=== PATIENT | male | born 1975 | race Caucasian/White ===

== ENCOUNTER 2019-02-10 10:34 | Inpatient (IN) | payer OTHER, SELFPAY ==
[2019-02-10] VITALS (34 sets, daily range): BP systolic 129–163; BP diastolic 81–105; PULSE 59–101; RESP 12–27; TEMP 36.4–36.8; O2SAT 95–100; BMI 40.8; BMI 39.5
--- NOTE | 2019-02-10 10:47 | EKG12_ITS ---
Test Reason : AM EKG Blood Pressure : / mmHG Vent. Rate : 074 BPM Atrial Rate : 074 BPM P-R Int : 184 ms QRS Dur : 106 ms QT Int : 348 ms P-R-T Axes : 040 079 -03 degrees QTc Int : 386 ms Normal sinus rhythm Nonspecific T wave abnormality Abnormal ECG When compared with ECG of 10-FEB-2019 13:16, MANUAL COMPARISON REQUIRED, DATA IS UNCONFIRMED Confirmed by KATTY STOCK ([id number]), visual effects editor MARIAM QUIROZ ([id number]) on 02/11/2019 2:16:07 PM Referred By: Casey Gillette Confirmed By:KATTY STOCK
--- NOTE | 2019-02-10 10:47 | RAD_ITS ---
STUDY: X-RAY CHEST REASON FOR EXAM: Male, 43 years old. TECHNIQUE: 1 view COMPARISON: None. FINDINGS: There is poor inspiration. The heart is not enlarged. The lung herrera and costophrenic angles are clear. The visualized bony structures are intact. The trachea is in the midline. RAD/Chest 1 View (Portable) IMPRESSION: Negative chest . Electronically Signed: Alondra Ewing, at 11:48 EDT Tel , Service support ,
[2019-02-10 10:57] LABS: Absolute Lymphocyte Count 2.86 X10^3/ul (0.83-4.51); Absolute Neutrophil Count 3.1 X10^3/uL (2.0-7.7); Basophil# 0.02 X10^3/uL; Basophil% 0.3 % (0-1); Eosinophil# 0.39 X10^3/uL; Eosinophils% 5.8 % (0-5); Hematocrit 46.2 % (40-54); Hemoglobin 16.3 g/dl (13.0-16.5); Lymphocyte # 2.86 X10^3/ul (4.0); Lymphocyte % 42.4 % (19-41); Mean Corp Hgb Conc 35.3 g/gl (32-36); Mean Corpuscular Hgb 30.6 pg (27.0-32.0); Mean Corpuscular Volume 86.8 fL (80-94); Mean Platelet Vol. 9.6 fl (6.2-12.0); Monocyte% 5.9 % (0-10); Neutrophil # 3.05 X10^3/uL (2.7-7.7); Neutrophil % 45.2 % (47-70); POSITIVE COUNT NO; POSITIVE DIFFERENTIAL NO; POSITIVE MORPHOLOGY NO; Platelet Count 182 K/mm3 (150-450); RBC Distribution Width CV 13.3 % (11.6-14.6); RBC Distribution Width SD 42.7 fl (35.1-43.9); Red Blood Count 5.32 M/mm3 (4.6-6.2); White Blood Count 6.8 K/mm3 (4.4-11.0)
[2019-02-10 11:11] LABS: Anion Gap 15 (5-15); BUN 21 mg/dL (7-18); BUN/Creat Ratio 16.2 RATIO (10-20); Chloride 108 mmol/L (98-107); EST Glomerular Filtration Rate 63 mL/min (>60); Est Glom Filt Rate - Afr Amer 77 mL/min (>60); Estimated Creatinine Clearance 71.76 ml/min; Glucose 153 mg/dL (74-106); Potassium 4.1 mmol/L (3.5-5.1); Sodium Level 143 mmol/L (136-145)
[2019-02-10] MEDS: Nitroglycerin SL (ED/IMG/CATH) 0.4 MG TABLET SUBLINGUAL ×2 (11:23→11:30)
--- NOTE | 2019-02-10 11:26 | EKG12_ITS ---
Test Reason : CP Blood Pressure : / mmHG Vent. Rate : 060 BPM Atrial Rate : 060 BPM P-R Int : 148 ms QRS Dur : 100 ms QT Int : 390 ms P-R-T Axes : 009 054 030 degrees QTc Int : 390 ms Normal sinus rhythm ST elevation, consider early repolarization or early inferior CT Borderline ECG No previous ECGs available Confirmed by MANDY IRELAND, MELIZA ([id number]), editor farm journal FABY VANEGAS ([id number]) on 02/24/2019 2:34:47 PM Referred By: Casey Gillette Confirmed By:MELIZA GALVAN MD
[2019-02-10] MEDS: TICAGRELOR 90 MG TABLET 180 MG PO (11:40)
--- NOTE | 2019-02-10 11:43 | ED.VISSUMM ---
- ER Visit Summary Date of Service: 02/10/19 Chief Complaint: Chest pain History of Present Illness: The patient is a 43 M treat hypertension and kidney stones. The last week starting Saturday a week ago patient had 3 different episodes of midsternal chest pain. At times it radiates to his back. Today while walking down the hallway he had onset the pain and became diaphoretic with it. He denies any dyspnea. No nausea. It does not radiate to his arm or jaw. He is never had any cardiac disease history. No history of DVT or PE or risk factors. He is never had a cardiac work-up and is no extensive family history of cardiac disease. Today when he became diaphoretic squad was called. He had a low heart rate described treating with atropine at the time his pressure was still 120 systolic. Physical Examination: Middle-aged male external chest pain. Initial blood pressure 143/99. Pulse ox 100%. HEENT exam unremarkable. Neck nontender. Lungs clear to auscultation bilaterally. Heart regular rate and rhythm rate about 60 no murmur. He does have some reproducible chest wall pain but I think this is coincidental. Abdomen is soft and nontender. Normal bowel sounds no peritoneal signs. Patient is moving all 4 extremities. He is equal symmetrical radial pulses. Calves are nontender without edema or cords. Neurologically he is awake and alert with no focal motor deficits. Test Results: Shows sinus rhythm he did have subtle ST upsloping in 1 to V3 through V6 but did not meet criteria: Acute ND. Repeat EKG was done and has changed. He again is in sinus rhythm but he has ST elevation again but worsening in leads I and II and V3 through V6 with ST depression now in the one deep to the second EKG meets criteria to be called in inferolateral ND. STEMI team was activated. Patient is already received Brilinta and aspirin. CBC was normal. Chemistries were normal. Chest x-ray showed a normal cardiac silhouette and mediastinum. Emergency Department Course and Treatment: I spoke to the ST elevation engineer automated equipment and he is on his way to the ER to evaluate the patient taken to the Water Quality Assistant. I discussed this with the patient and his family is being prepared to be taken to the Water Quality Assistant. Treatment Plan: [] Disposition: Transfer to the cardiac catheterization lab for emergent cardiac catheterization Impression: Acute chest pain secondary to acute inferolateral myocardial infarction Critical care time 30 minutes This note was generated with [employer] dictation software. It may contain incorrect words, spelling, and punctuation that were not noted in review of the chart prior to signing ED Disposition - Plan for ED Patient: Referrals: Adonay Boss MD [Primary Care Provider] -
--- NOTE | 2019-02-10 12:06 | CM.ED ---
Social Work Responding to Stemi Alert. Met with patient daughter in [facility] and offered support. Maribell BOWEN, DELL
[2019-02-10] MEDS: 0.9% Normal Saline 1,000 ML 100 ML IV (13:15)
--- NOTE | 2019-02-10 13:15 | NURSING ---
in ICU6 per bed from chemical processing laborer, chemical processing laborer RNs in attendance
--- NOTE | 2019-02-10 13:19 | EKG12_ITS ---
Test Reason : POST PCI Blood Pressure : / mmHG Vent. Rate : 068 BPM Atrial Rate : 068 BPM P-R Int : 188 ms QRS Dur : 094 ms QT Int : 380 ms P-R-T Axes : 039 068 002 degrees QTc Int : 404 ms Normal sinus rhythm with sinus arrhythmia Normal ECG No previous ECGs available Confirmed by MANDY IRELAND, MELIZA ([id number]), editor managing newspaper MARIAM QUIROZ ([id number]) on 02/24/2019 2:18:37 PM Referred By: Casey Gillette Confirmed By:MELIZA GALVAN MD
--- NOTE | 2019-02-10 13:28 | CON.PCM_ITS ---
Problem List (1) STEMI (ST elevation myocardial infarction) Status: Acute Reason for Consult Date of Consultation: 02/10/19 History of Present Illness: The patient is a 43 year old M [with past medical history of hypertension, GERD coming to [facility] because of chest pain. Chest pain has been going on and off since last Saturday. This morning it became more intense and he called the ambulance. Initial EKG showed some ST elevation in the inferior and lateral leads, however an EKG done in the emergency room did not reveal ST elevation TX. Subsequently patient had more chest pain and at around 11:37 AM he had another EKG which revealed inferior and lateral ST elevation TX and a STEMI alert was called. Patient was then brought emergently to the cardiac Inspector [employer]ities and was found to have 100% occlusion of the circumflex which was treated with thrombectomy and drug-eluting stent placement. He was also found to have a 95% ulcerated lesion in the distal RCA which was treated with drug-eluting stent placement. Patient is doing very well at the end of the procedure. Review of systems: All systems reviewed all others negative except that in the HPI] Past Medical History Allergies/Adverse Reactions: Allergies codeine Adverse Reaction (Verified 02/10/19 11:21) Itching Home Medications: Ambulatory Orders Medication Instructions Recorded Losartan Potassium [Cozaar] 100 mg PO DAILY 02/10/19 Omeprazole Magnesium [Prilosec Otc] 20 mg PO DAILY 02/10/19 - *Family History Paternal History Items: Heart Disease - Past medical history: Patient has past medical history of hypertension and GERD. Smoking Status: Never smoker Alcohol: Rare Objective: Vital Signs Temp Pulse Resp BP Pulse Ox 98.1 F 66 21 H 163/81 H 97 02/10/19 10:35 02/10/19 11:48 02/10/19 11:48 02/10/19 11:48 02/10/19 11:48 Oxygen Flow Rate (L/min) 2 Oxygen Delivery Method Nasal Cannula Weight: 276 lb 7.355 oz Body Mass Index (BMI) 40.8 General: Awake, Alert, Oriented x 3 HEENT: PERRL, EOMI, Sclera Non Icteric Neck: Supple, Good ROM, No Lymph Node Enlargement Lungs: Clear to auscultation Cardiovascular: Regular Rhythm, Normal S1, Normal S2, No Murmurs, No Rubs, No Gallops Vascular: No Carotid Bruits, Normal Femoral Pulses, Normal Radial Pulses, Normal Dorsalis Pedal Pulse, Normal Posterior Tibial Pulses Abdomen: Bowel Sounds Present, Soft, Non Tender, No HSM, No Organomegaly Extremities: No Cyanosis, No Clubbing, No edema Psych/Mental Status: Appropriate 02/10/19 10:40: WBC 6.8, RBC 5.32, Hgb 16.3, Hct 46.2, MCV 86.8, MCH 30.6, MCHC 35.3, RDW 13.3, RDW Differential 42.7, Plt Count 182, MPV 9.6, Immature Gran % (Auto) 0.400, Neut % (Auto) 45.2 L, Lymph % (Auto) 42.4 H, [place] % (Auto) 5.9, Eos % (Auto) 5.8 H, Baso % (Auto) 0.3, Absolute Neuts (auto) 3.1, Total Counted Not Reportable 02/10/19 10:40: Sodium 143, Potassium 4.1, Chloride 108 H, Carbon Dioxide 20.0 L , Anion Gap 15, BUN 21 H, Creatinine 1.30, Est GFR (MDRD) Af Amer 77, Est GFR (MDRD) Non-Af 63, BUN/Creatinine Ratio 16.2, Glucose 153 H, Calcium 9.0, Troponin I 0.304 H Rhythm: EKG: ECHO: Stress Test: Cardiac Cath: PCI: CT Surgery: Holter monitor: EPS: PPM: CXR: Chest CT Scan: Assessment/Plan 1. ST elevation TX: As mentioned in the HPI, subsequent EKG in the emergency room revealed STEMI and patient was treated with thrombectomy and drug-eluting stent placement to the circumflex and drug-eluting stent placement to the RCA. We will keep the patient on dual antiplatelet therapy, beta-cristiano, statin. He does have history of hypertension, however, his blood pressure was on the low side. He was on losartan 100 mg p.o. daily. We will monitor his blood pressure while he is in the hospital and restart losartan at a lower dose probably if required. Patient will be admitted to the ICU for further management of his ST elevation TX
--- NOTE | 2019-02-10 13:30 | EKG12_ITS ---
Test Reason : REPEAT Blood Pressure : / mmHG Vent. Rate : 078 BPM Atrial Rate : 078 BPM P-R Int : 168 ms QRS Dur : 094 ms QT Int : 364 ms P-R-T Axes : 023 052 022 degrees QTc Int : 414 ms Normal sinus rhythm ST elevation consider inferolateral injury or acute infarct ACUTE UT / STEMI Abnormal ECG Confirmed by MANDY IRELAND, MELIZA ([id number]), primer expeditor and drier MARIAM QUIROZ ([id number]) on 02/24/2019 2:19:04 PM Referred By: Casey Gillette Confirmed By:MELIZA GALVAN MD
--- NOTE | 2019-02-10 14:24 | HP.PCM_ITS ---
Problem List (1) STEMI (ST elevation myocardial infarction) Status: Acute Qualifiers: Involved coronary artery: other coronary artery Qualified Code(s): I21.29 - ST elevation (STEMI) myocardial infarction involving other sites History of Present Illness Date of Admission: 02/10/19 Chief Complaint: chest pain The patient is a 43 year old M who was in his normal state of health but then started having midsternal chest pain and diaphoretic. Presented to the emergency room initial EKG was normal but subsequent EKG about an hour showed ST elevation in V2 and V4 plus depressions in V1 and V2. Patient was taken to the Infantry Senior [facility] and was found to have a percent occlusion of the circumflex which required stent as well as received a stent to his RCA. Currently patient is feeling better at this time. Patient said that he had some chest pain when he was doing some housework with his couple weeks ago but until just very wiped out afterwards but subsequently felt better and had no other issues. [] Past Medical History Medical History: Medical History (Last Updated 02/10/19 @ 14:25 by Jacky Rice DO) CAD (coronary artery disease) I25.10 GERD (gastroesophageal reflux disease) K21.9 HTN (hypertension) I10 Allergies codeine Adverse Reaction (Verified 02/10/19 11:21) Itching Home Medications: Ambulatory Orders Medication Instructions Recorded Losartan Potassium [Cozaar] 100 mg PO DAILY 02/10/19 Omeprazole Magnesium [Prilosec Otc] 20 mg PO DAILY 02/10/19 Psychiatric History: No pertinent psych hx Lives: Spouse/ Significant Other Smoking Status: Never smoker Tobacco Use: Non-smoker Alcohol: Rare Drugs: None - *Family History Paternal History Items: Heart Disease - Past medical history: Patient has past medical history of hypertension and GERD. Review of Systems Constitutional: Denies: Anorexia, Chills, Fever, Night Sweats Eyes: Denies: Blurred vision, Double vision HEENT: Denies: Head Aches, Sinus Congestion, Sinus Drainage Cardiovascular: Reports: Chest Pain. Denies: Edema Respiratory: Denies: Cough, Shortness of breath at rest, Sputum production Gastrointestinal: Denies: Abdominal Pain, Nausea, Vomiting Genitourinary: Denies: Dysuria Musculoskeletal: Denies: Joint Pain, Joint Tenderness Skin: Denies: Rash, Wounds Neurological: Denies: Numbness, Tingling, Focal weakness Psychiatric: Denies: Anxiety, Depression Hematologic/ Lymphatic: Denies: Easy Bruising, Easy Bleeding, Hx of blood clot Comment: A 10 point review of systems were negative except as mentioned in the history of present illness and the other review of systems. VTE Information - Inpt Only VTE Present on Admission: No VTE Mechan Device Prophylaxis: SCD's VTE Pharm Prophylaxis ordered?: No Patient Problems: Active and Suspected Problems STEMI (ST elevation myocardial infarction) (Acute) - Physical Exam General: Alert, No apparent distress HEENT: Atraumatic, Normocephalic Oral: Moist Mucosa, No Gingival or Mucosal Lesions/ Ulcerations Neck: No Nodes, Thyroid Normal Size and Texture Lungs: Clear to auscultation, Normal air movement, No rhonchi, No wheeze, No rales Cardiovascular: Regular rate, Regular Rhythm, Normal S1, Normal S2, No murmurs Abdomen: Bowel Sounds Present, Soft, Non Tender, Non-Distended, No Hepato- splenomegaly Extremities: No edema, No Calf Tenderness Skin: No rashes, No breakdown Musculoskeletal: No Tenderness to Palpation of Joints or Extremities, No Muscle Wasting Neurological: Deep Tendon Reflexes 2+/4 and Symmetrical, - - No clonus Psych/Mental Status: Normal Affect, Appropriate Vital Signs Temp Pulse Resp BP Pulse Ox 36.7 C 66 21 H 163/81 H 97 02/10/19 10:35 02/10/19 11:48 02/10/19 11:48 02/10/19 11:48 02/10/19 11:48 Oxygen Flow Rate (L/min) 2 Oxygen Delivery Method Nasal Cannula Weight: 125.4 kg Body Mass Index (BMI) 40.8 Laboratory Tests Past 24 Hrs 02/10/19 02/10/19 10:40 10:40 WBC 6.8 RBC 5.32 Hgb 16.3 Hct 46.2 MCV 86.8 MCH 30.6 MCHC 35.3 RDW 13.3 RDW Differential 42.7 Plt Count 182 MPV 9.6 Immature Gran % (Auto) 0.400 Neut % (Auto) 45.2 L Lymph % (Auto) 42.4 H [place] % (Auto) 5.9 Eos % (Auto) 5.8 H Baso % (Auto) 0.3 Absolute Neuts (auto) 3.1 Absolute Lymphs (auto) 2.86 Total Counted Not Reportable Sodium 143 Potassium 4.1 Chloride 108 H Carbon Dioxide 20.0 L Anion Gap 15 BUN 21 H Creatinine 1.30 Estim Creat Clear Calc 71.76 Est GFR (MDRD) Af Amer 77 Est GFR (MDRD) Non-Af 63 BUN/Creatinine Ratio 16.2 Glucose 153 H Calcium 9.0 Troponin I 0.304 H Assessment/Plan All Active Problems STEMI (ST elevation myocardial infarction) (Acute) 1. ST elevation myocardial infarction * Status post stents to the circumflex and the RCA * Currently on an Integrilin drip plus metoprolol 2.5 mg twice daily, ticagrelor, aspirin and statin * Cardiology continuing to follow * Echocardiogram ordered 2. Hypertension * Resume losartan and monitor 3. VTE prophylaxis: SCDs for now. Code Visit Inpatient E&M: 32174 Init Hosp L3
[2019-02-10] MEDS: Metoprolol Tartrate 25 MG Tablet 12.5 MG PO (15:53)
--- NOTE | 2019-02-10 18:22 | CL.I_ITS ---
Patient Name: ALLIE HINOJOSA Study Date: 02/10/2019 Performing: Pan Gillette MD Ht: 69 inches 175 cm : 1975 Wt: 275.9 lbs 125 kg Age: 43 Gender: male BSA: 2.36 PROCEDURE(S) PERFORMED EL29-ZEH/COR/LV LR41-WTI, LARUEN AND/OR PTCA, ARTERY OR GRAFT, SINGLE VESSEL [id number] W OR WO PTCA, SINGLE CORONARY ARTERY CLINICAL PROFILE AND CO-MORBIDITIES Indications: ACS <= 24 hrs Heart Failure: None Stress/Imaging Stress/Image Study Performed: No CAD Presentations: STEMI. Symptom onset Date/Time: 02/10/19 STEMI. Symptom onset Date/Time: 09:3 0:00 Time Estimated CONCLUSIONS Successful thrombectomy and LAUREN to LCx and LAUREN to distal RCA RECOMMENDATIONS Referred for immediate PCI Risk factor modification ASA Indefinitley Brilinta for at least 12 months Routine post interventional care DESCRIPTION OF PROCEDURE The patient arrived to the procedure lab. The risks and benefits of the procedure as well as a full d escription of our services here and lack of surgical backup were fully explained to the patient and/o r their significant other prior to the catheterization. The Timeout was completed, verifying the gege ect patient and procedure. The patient's procedural site was prepped and draped in the usual fashion. Local anesthetic was given subcutaneously to right radial region with Lidocaine 2%. Using a modified Seldinger technique, arterial access was obtained via the right radial artery, a 6Fr sheath was inse rted.. Left Coronary Artery selective angiography was performed in multiple views using a 5 Fr. JL3. 5 catheter. Left Ventriculography was performed in MCDANIEL projection using a 5 Fr. JR 4. LV to AO pullba ck pressures were then recorded. Right Coronary Artery selective angiography was then performed in mu ltiple views using a 5 Fr. JR 4 catheterThe images were reviewed and options discussed. A decision was then made to proceed with an Intervention, IVUS or other adjunct procedure. XB 3 Guide catheter was inserted and engaged into the LCA. BMW Guide wire was advanced to the Cir cumflex. Girard AP inserted Pass # 1 Girard AP Removed 3.5 x 28 Elunir Drug Eluting stent was inserte d. Drug Eluting stent was advanced across the lesion in the circumflex, mid. Angiogram performed pre stent deployment. Angiogram performed post stent deployment. JR 4.0 Guide catheter was inserted and e ngaged into the RCA. BMW Guide wire was advanced to the RCA. 3.0 x 20 Emerge Balloon catheter was adv anced across lesion in the right coronary, mid. PTCA balloon inflated at 10 atms for 22 secs. Angiogr am performed post balloon dilatation. 4.0 x 24 Elunir Drug Eluting stent was advanced across the lesi on in the right coronary, mid. Angiogram performed post stent deployment. The arterial sheath was p ulled and a TR Band was applied for hemostasis 16cc air CORONARY ANGIOGRAPHY DOMINANCE: Right Dominant LEFT HEART ASSESSMENT Left Ventricular Ejection Fraction: by LV Gram 55 % Elevated Left Ventricular End Diastolic Pressure Normal LV wall motion LEFT MAIN: Mild luminal irregularities LEFT ANTERIOR DESCENDING ARTERY: MID LAD: 65 % Stenosis CIRCUMFLEX ARTERY: MID CIRC: is occluded RIGHT CORONARY ARTERY: DISTAL RCA: 95 % Stenosis VALVE FINDINGS: No Aortic Valve Stenosis No Mitral Insufficency INTERVENTION INFORMATION LESION SITE: Circumflex (Mid) Lesion Complexity: High/C, chronic total occlusion: No, lesion at bifurcation: No, thrombus present: Yes, lesion length: 25 mm, culprit lesion: Yes, Previously treated lesion: No Pre Stenosis: 100 % Pre intervention VERNON flow: 0 PROCEDURE: Thrombectomy, Drug Eluting Stent Post Stenosis: 0 % Post intervention VERNON flow: 3 Lesion Devices: Cordis 6 Fr XB3.0 100cm Guide Catheter Terumo .014 Runthrough Extra Floppy 180cm straight Christiansen .014 BMW [place] Straight 190cm Cardinal Elunir LAUREN RX 3.5x28 LESION SITE: RCA (Mid) Lesion Complexity: High/C, chronic total occlusion: No, lesion at bifurcation: No, thrombus present: Yes, lesion length: 20 mm, culprit lesion: Yes Pre Stenosis: 95 % Pre intervention VERNON flow: 2 PROCEDURE: Drug Eluting Stent with pre dilatation. Post Stenosis: 0 % Post intervention VERNON flow: 3 Lesion Devices: Christiansen .014 BMW [place] Straight 190cm Cordis 6 Fr JR4 100cm Guide Catheter Terence Sci EMERGE MR 3.00x20 BALLOON Cardinal Elunir LAUREN RX 4.0x24 COMPLICATIONS No Complications PROCEDURE MEDICATIONS Versed 1 mg IV Fentanyl 50 mcg IV Fentanyl 50 mcg IV Oxygen: 2 L/min via nasal cannula Heparin given IA 02/10/2019 12:09:22 Heparin 7000 unit(s) IV 02/10/2019 12:10:04 Nitro 100 mcg IC 02/10/2019 12:27:34 Verapamil 2.5mg, Ntg 100mcgs, 3000 units of Heparin given IA 02/10/2019 12:09:22 IV Bolus: .9 NaCl 500 ml total 02/10/2019 12:27:47 SUMMARY OF HEMODYNAMIC DATA Time AIR REST ECG 12:00:03 LV 162/-10, 22 12:11:33 LV 162/-10, 22 12:11:39 LVp 149/-8, 23 12:11:55 AOp 132/87 (105) 12:12:00 AO 128/81 (101) SA 12:12:05 LV 113/0, 21 12:34:02 LV 113/3, 24 12:34:34 LVp 88/11, 28 12:34:50 AOp 98/61 (75) 12:34:56 Signed By Pan Gillette MD On 02/10/2019 6:22:01 PM Pan Gillette MD
[2019-02-10] MEDS: Metoprolol Tartrate 25 MG Tablet PO (21:39)
[2019-02-10] MEDS: TICAGRELOR 90 MG TABLET PO (21:40)
[2019-02-10] MEDS: Atorvastatin Calcium 40 MG Tablet PO (21:40)
[2019-02-10] MEDS: amLODIPine 2.5 MG Tablet PO (23:46)
[2019-02-11] VITALS (31 sets, daily range): BP systolic 87–169; BP diastolic 63–124; PULSE 57–92; RESP 15–25; TEMP 36.6–37.1; O2SAT 96–100; BMI 40.9
[2019-02-11] MEDS: hydrALAZINE 20 MG/ML Vial 10 MG IV (01:17)
[2019-02-11] MEDS: Acetaminophen 325 MG Tablet 650 MG PO ×2 (01:44→09:14)
[2019-02-11 04:39] LABS: Anion Gap 12 (5-15); BUN 14 mg/dL (7-18); BUN/Creat Ratio 13.7 RATIO (10-20); Calcium,Total 8.7 mg/dL (8.5-10.1); Chloride 108 mmol/L (98-107); Cholesterol 201 mg/dL (200); Creatinine, Serum 1.02 mg/dL (0.70-1.30); EST Glomerular Filtration Rate 84 mL/min (>60); Est Glom Filt Rate - Afr Amer 101 mL/min (>60); Estimated Creatinine Clearance 91.46 ml/min; Glucose 126 mg/dL (74-106); High Density Lipoprotein 36 mg/dL; Potassium 3.8 mmol/L (3.5-5.1); Sodium Level 140 mmol/L (136-145); Triglycerides 140 mg/dL; Very Low Density Lipoprotein 28 mg/dL (5-40)
[2019-02-11 08:32] LABS: Absolute Lymphocyte Count 1.44 X10^3/ul (0.83-4.51); Absolute Neutrophil Count 8.8 X10^3/uL (2.0-7.7); Basophil# 0.01 X10^3/uL; Basophil% 0.1 % (0-1); Eosinophil# 0.08 X10^3/uL; Eosinophils% 0.7 % (0-5); Hematocrit 46.2 % (40-54); Hemoglobin 16.1 g/dl (13.0-16.5); Lymphocyte # 1.44 X10^3/ul (4.0); Lymphocyte % 12.7 % (19-41); Mean Corp Hgb Conc 34.8 g/gl (32-36); Mean Corpuscular Hgb 30.2 pg (27.0-32.0); Mean Corpuscular Volume 86.7 fL (80-94); Mean Platelet Vol. 9.6 fl (6.2-12.0); Monocyte# 0.98 X10^3/uL; Monocyte% 8.6 % (0-10); Neutrophil # 8.78 X10^3/uL (2.7-7.7); Neutrophil % 77.5 % (47-70); POSITIVE COUNT NO; POSITIVE DIFFERENTIAL NO; POSITIVE MORPHOLOGY NO; Platelet Count 192 K/mm3 (150-450); RBC Distribution Width CV 13.4 % (11.6-14.6); RBC Distribution Width SD 42.5 fl (35.1-43.9); Red Blood Count 5.33 M/mm3 (4.6-6.2); White Blood Count 11.3 K/mm3 (4.4-11.0)
[2019-02-11] MEDS: Aspirin E.C. 81 MG Tablet PO (09:13)
[2019-02-11] MEDS: Losartan Potassium 100 MG Tablet PO (09:13)
[2019-02-11] MEDS: TICAGRELOR 90 MG TABLET PO ×2 (09:14→21:45)
[2019-02-11] MEDS: Metoprolol Tartrate 25 MG Tablet 12.5 MG PO (09:14)
[2019-02-11] MEDS: Pantoprazole Sodium 20 MG Tablet PO (09:14)
--- NOTE | 2019-02-11 09:51 | CASEMGMT ---
SW went to room to see patient. Introduced self and role at [facility]. Patient said he has insurance and they just gave someone a copy of his card. Becky SHARPE MSW
--- NOTE | 2019-02-11 10:00 | ECHOCS_ITS ---
Reason For Study: STEMI Procedure This was a 2D Doppler, Color Flow transthoracic echocardiogram. The study was technically difficult. Due to body habitus. Contrast injection was performed. Exam performed portable in ICU/CCU. Left Ventricle Normal LV size. Concentric left ventricular hypertrophy. The estimated ejection fraction is 50-55 %. No evidence for diastolic dysfunction. possible mild hypokinesis of the inferolateral wall. Right Ventricle The right ventricle is not well visualized. Atria The left atrium is mildly enlarged. Normal right atrium. No doppler evidence for ASD. Mitral Valve There is no mitral valve stenosis. No mitral valve insufficiency. Tricuspid Valve There is no tricuspid stenosis. No tricuspid valve insufficiency. Unable to estimate RV systolic pressure due to insufficient tricuspid regurgitant envelope. Aortic Valve The aortic valve is not well visualized. There is no aortic stenosis. No aortic valve insufficiency. Pulmonic Valve There is no pulmonic valvular stenosis. No eccentric pulmonic valve insufficiency. Great Vessels Normal aortic root. Pericardium/Pleural No pericardial effusion. Medication Diluted definity 5.0ml given slow IV push to enhance endocardial definition. MMode/2D Measurements & Calculations LVIDd: 4.6 cm IVSd: 1.1 cm Ao root diam: 3.7 cm LVIDs: 3.3 cm LVPWd: 1.0 cm RVDd: 3.1 cm FS: 28.3 % LAV(MOD-bp): 66.5 ml LA A4 area: 21.5 cm2 LA dimension(2D): 4.0 cm LAV(MOD-bp) Indexed: 28.5 ml/m2 LAV(MOD-sp2): 66.3 ml LAV(MOD-sp4): 66.9 ml RA A4 area: 18.2 cm2 Time Measurements MV dec time: 0.19 sec Doppler Measurements & Calculations MV E max brian: 52.2 cm/sec Lat Peak E' Brian: 8.6 cm/sec Med Peak E' Brian: 11.5 cm/sec MV A max brian: 67.1 cm/sec E/E' lat: 6.0 E/E' med: 4.5 MV E/A: 0.78 Ao V2 max: 120.6 cm/sec LV V1 max: 87.4 cm/sec PA V2 max: 95.0 cm/sec Ao max P.8 mmHg LV V1 max P.1 mmHg TR max brian: 168.1 cm/sec TR max P.3 mmHg Interpretation Summary The study was technically difficult. Diluted definity 5.0ml given slow IV push to enhance endocardial definition. The estimated ejection fraction is 50-55 %. No evidence for diastolic dysfunction. The study was technically difficult. Ordering Physician: Casey Gillette Referring Physician: Adonay Boss Performed By: Ruthann Chester RDCS, RVT
--- NOTE | 2019-02-11 10:46 | CASEMGMT ---
RN CM Assessment Introduced role of RN CM to patient.? Patient is alert, oriented and able?to participate in RN CM Assessment. ?Care providers, pharmacy, and demographics verified. Presentation: Starting Last week- 3 episodes of CP Admit Dx: STEMI Re-Admit: No Barriers/Issues: None PCP: Adonay Boss- States does not care for PCP and now that has new Insurance, plans on switching PCP, denies needing list and states that he knows how to access PCP from Insurance site to choose from. Specialists: None Preferred Pharmacy: [facility] Insurance: [employer] Rx Benefit:?Yes ?LNOK: Lyndsay Chung LW/HPOA: Yes both, aware not on file at [facility]. HPOA- Lyndsay Chung Living Arrangements:?Lives with and daughter in a 2 story home, Bedroom on lower level. 2 steps to enter. ADL?s: Independent with ambulation and ADL's Transportation: Patient drives, to transport on DC. DME: CPAP- [facility]. Denies any other DME. HHC: None SNF: None Goal: Home and does not anticipated will have any needs. DC PLAN: Home with no anticipated needs identified at this time. Denies Questions or Concerns and aware CM remains available for any emerging needs. CM to follow for DC with Anticoagulation that may have Coupon Card. ROBERT Cornell
--- NOTE | 2019-02-11 10:57 | CRPHASE1_ITS ---
Patient Communication PHII Cardiac Rehab Discussed with Patient:: Yes Guide to Cardiac Rehab Given to Patient:: Yes Cardiac Rehab Facility Choice List Given to Patient:: Yes - chose [facility] Program Other:: Communication Given to CR, With permission faxed order and referral information Assembly Press Operator:: Casey Gillette PCP:: Adonay Boss Phase II Cardiac Rehab:: Yes - talked to Katy at [place]. Risk Factors/Lifestyle Smoking Status: Never smoker Hx Hypertension: Yes Hx Diabetes Mellitus Type 2: No Height: 1.75 m Weight:: 125.4 kg BMI: 40.9 ETOH: No Caffeine: Yes Substance Abuse: No Risk Factor for Sedentary Lifestyle: Moderate Risk Family History: Heart Disease Laboratory Values: Cardiac Rehab Phase I Labs Triglycerides 140 mg/dL (-199) 02/11/19 04:00 Cholesterol 201 mg/dL (200) H 02/11/19 04:00 137 mg/dL (0-130) H 02/11/19 04:00 36 mg/dL (40-) L 02/11/19 04:00 Phase I Education Given On:: [place], Nutrition Knowledge of Condition:: Yes Learning Preferences: Verbal Hospital Course Pain Description: Sharp, Tightness Pain Intensity: 4 Cardiac Cath Date:: 02/11/19 Medical/Surgical History GA:: Yes Diabetes:: No Hypertension:: Yes Discharge/Home/Social Eval Discharge Disposition: Home Marital Status: - Cardiac Rehabilitation Info Cardiac Rehabilitation Program Information: Cardiac Rehabilitation is important for patients like you who are recovering from a heart problem. Cardiac rehabilitation programs are recognized as integral to the continued care of the patient with coronary heart disease. The cardiac rehabilitation program is designed to optimize a patient's physical, psychological, and social functioning. Health resident care aid work in cardiac rehabilitation programs and assist you with getting the treatments you need to get stronger and healthier - like exercise, healthy eating habits, and me dications. Cardiac rehabilitation has been show to help people with heart problems live longer and have better life enjoyment than people who do not go to cardiac rehabilitation. Please contact the Cardiac Rehabilitation Program at [facility] at in two weeks if you have not heard from them.
--- NOTE | 2019-02-11 11:08 | CRPH1.INSTRU ---
General Education CAD and cardiac anatomy and function:: Patient communicates acknowledgment, Family communicates acknowledgment Explanation of diagnoses and procedures:: Patient communicates acknowledgment, Family communicates acknowledgment Sign/Symptoms of OR:: Patient communicates acknowledgment, Family communicates acknowledgment Antiplatelet therapy: Not instructed Proper use of NTG-SL: Not instructed Emergency procedures and activation of EMS: Patient communicates acknowledgment Compliance of all prescribed medications: Not instructed Smoking Patient Nicotine/Smoking Risk Factors Are:: Never smoked Dyslipidemia Recommendations Include:: Lipid profile not available Overweight/Obesity Patient Overweight/Obesity Risk Factors Are:: Overweight = 26-29 Overweight/Obesity:: Patient communicates acknowledgment Hypertension Recommendations Include:: Maintain BP <130/85 Hypertension:: Patient communicates acknowledgment Heart Disease Patient Heart Disease Risk Factors Are:: Family history of heart disease < 65 years old Heart Disease Response Code:: Patient communicates acknowledgment Diabetes Patient Diabetes Risk Factors Are:: No documented hx of diabetes Metabolic Syndrome Metabolic Syndrome Response Code:: Patient communicates acknowledgment Sedentary Sedentary Response Code:: Patient communicates acknowledgment Stress Patient Stress Risk Factors Are:: Patient denies stress as a risk factor
--- NOTE | 2019-02-11 15:08 | PN.CARD_ITS ---
Subjectve: Patient is doing well from a cardiac standpoint. No chest pain at this time. Objective: Vital Signs Temp Pulse Resp BP Pulse Ox 97.8 F 83 16 154/89 H 100 02/11/19 12:00 02/11/19 14:00 02/11/19 14:00 02/11/19 14:00 02/11/19 14:00 Oxygen Flow Rate (L/min) 2 Oxygen Delivery Method Room Air Weight: 276 lb 7.355 oz Body Mass Index (BMI) 39.5 Intake and Output for Last 24 Hours 02/09/19 02/10/19 02/11/19 23:59 23:59 23:59 Intake Total 1265 / 1265 540 / 540 Output Total 1999 1250 / 1250 Balance -735 / -735 -710 / -710 General: Awake, Oriented x 3 HEENT: Atraumatic Oral: Moist Mucosa Neck: Supple Lungs: Clear to auscultation Cardiovascular: Normal S1, Normal S2 Abdomen: Soft Extremities: No edema Psych/Mental Status: Appropriate 02/11/19 04:00: Sodium 140, Potassium 3.8, Chloride 108 H, Carbon Dioxide 20.0 L , Anion Gap 12, BUN 14, Creatinine 1.02, Est GFR (MDRD) Af Amer 101, Est GFR (MDRD) Non-Af 84, BUN/Creatinine Ratio 13.7, Glucose 126 H, Calcium 8.7, Triglycerides 140, Cholesterol 201 H, LDL Cholesterol 137 H, VLDL Cholesterol 28, HDL Cholesterol 36 L 02/11/19 04:00: WBC 11.3 H, RBC 5.33, Hgb 16.1, Hct 46.2, MCV 86.7, MCH 30.2, MCHC 34.8, RDW 13.4, RDW Differential 42.5, Plt Count 192, MPV 9.6, Immature Gran % (Auto) 0.400, Neut % (Auto) 77.5 H, Lymph % (Auto) 12.7 L, [place] % (Auto) 8.6, Eos % (Auto) 0.7, Baso % (Auto) 0.1, Absolute Neuts (auto) 8.8 H, Total C ounted Not Reportable Rhythm: EKG: ECHO: Stress Test: Cardiac Cath: PCI: CT Surgery: Holter monitor: EPS: PPM: CXR: Chest CT Scan: Medical Necessity - Tobacco Use Smoking Status: Never smoker Tobacco Use: Non-smoker Assessment/Plan 1. ST elevation [place]: Doing well. Continue current medications. 2. Hypertension: He does have history of hypertension, however, his blood pressure was on the low side at the time of presentation. He was on losartan 100 mg p.o. daily as an outpatient. His losartan has been started at this dose and he is also on metoprolol 12.5 mg p.o. twice daily. His blood pressure medications can be adjusted as an outpatient.
--- NOTE | 2019-02-11 19:17 | PN_ITS ---
Patient Problems: Active and Suspected Problems (Last Updated 02/11/19 @ 10:34 by NOÉ Beck) STEMI (ST elevation myocardial infarction) (Acute) Subjective: Patient was seen and examined today in ICU, radiology gave permission for the patient to be moved to PCU, patient has no complaints of any shortness of breath or chest pain - Physical Exam General: Alert, Oriented x3, Cooperative, No apparent distress, Well developed HEENT: Atraumatic, PERRLA, EOMI, Normocephalic Oral: Moist Mucosa Neck: Supple, No JVD, Negative Carotid Bruits, Trachea Midline, Thyroid Normal Size and Texture Lungs: Clear to auscultation, Normal air movement, No rhonchi, No wheeze, No rales, Diminished, Rales Cardiovascular: Regular rate, Regular Rhythm, Normal S1, Normal S2, No murmurs, No Ectopic Activity Abdomen: Bowel Sounds Present, Soft, Non Tender, Non-Distended, Obese, No hernias noted Extremities: No clubbing, No cyanosis, No edema, Capillary Refill Less than 3 Seconds Skin: No rashes, No breakdown Musculoskeletal: No Tenderness to Palpation of Joints or Extremities Neurological: Cranial nerves II-XII grossly intact, Neuro grossly intact, Sensory exam intact to light touch and pain, Coordination normal Psych/Mental Status: Normal Affect, Appropriate, Alert and oriented to time, place, person, mood and affect Vital Signs Temp Pulse Resp BP Pulse Ox 97.9 F 89 16 156/85 H 98 02/11/19 17:58 02/11/19 18:00 02/11/19 18:00 02/11/19 17:58 02/11/19 18:00 Oxygen Flow Rate (L/min) 2 Oxygen Delivery Method Room Air Weight: 125.4 kg Body Mass Index (BMI) 39.5 Intake and Output for Last 24 Hours 02/09/19 02/10/19 02/11/19 23:59 23:59 23:59 Intake Total 1265 / 1265 1020 / 1020 Output Total 1999 1750 / 1750 Balance -735 / -735 -730 / -730 Laboratory Tests Past 24 Hrs 02/11/19 02/11/19 04:00 04:00 WBC 11.3 H RBC 5.33 Hgb 16.1 Hct 46.2 MCV 86.7 MCH 30.2 MCHC 34.8 RDW 13.4 RDW Differential 42.5 Plt Count 192 MPV 9.6 Immature Gran % (Auto) 0.400 Neut % (Auto) 77.5 H Lymph % (Auto) 12.7 L [place] % (Auto) 8.6 Eos % (Auto) 0.7 Baso % (Auto) 0.1 Absolute Neuts (auto) 8.8 H Absolute Lymphs (auto) 1.44 Total Counted Not Reportable Sodium 140 Potassium 3.8 Chloride 108 H Carbon Dioxide 20.0 L Anion Gap 12 BUN 14 Creatinine 1.02 Estim Creat Clear Calc 91.46 Est GFR (MDRD) Af Amer 101 Est GFR (MDRD) Non-Af 84 BUN/Creatinine Ratio 13.7 Glucose 126 H Calcium 8.7 Triglycerides 140 Cholesterol 201 H LDL Cholesterol 137 H VLDL Cholesterol 28 HDL Cholesterol 36 L Medical Necessity - Tobacco Use Smoking Status: Never smoker Tobacco Use: Non-smoker Assessment/Plan All Active Problems (Last Updated 02/11/19 @ 10:34 by NOÉ Beck) Hyperlipidemia (Acute) Arteriosclerotic heart disease (ASHD) (Acute) STEMI (ST elevation myocardial infarction) (Acute) #1 STEMI, status post LAUREN to circumflex and distal right coronary artery-patient will be moved to PCU, current medications will be continued #2 hyperlipidemia-patient is now on a statin #3 hypertension-patient's blood pressure has been running a little high-I talked with cardiology and will change the patient from metoprolol to Coreg Code Visit Inpatient E&M: 53893 Subs Hosp L2
[2019-02-11] MEDS: Atorvastatin Calcium 40 MG Tablet PO (21:45)
[2019-02-11] MEDS: Carvedilol 6.25 MG Tablet PO (21:55)
[2019-02-12 03:00] VITALS: PULSE 86
[2019-02-12 03:26] VITALS: BP 133/77; PULSE 77; RESP 20; TEMP 37.1; O2SAT 94
--- NOTE | 2019-02-12 06:48 | PCA ---
02/12/19 0361 weight change discussed with Katy CHRISTIANSON
[2019-02-12 07:30] VITALS: O2SAT 96
[2019-02-12 07:34] VITALS: PULSE 79
--- NOTE | 2019-02-12 08:42 | PCM.PN.CARD ---
Subjectve: Doing well. No complaints. Objective: Vital Signs Temp Pulse Resp BP Pulse Ox 98.8 F 79 20 H 133/77 H 96 02/12/19 03:26 02/12/19 07:34 02/12/19 03:26 02/12/19 03:26 02/12/19 07:30 Oxygen Flow Rate (L/min) 2 Oxygen Delivery Method Room Air Weight: 267 lb 13.786 oz Body Mass Index (BMI) 39.5 Intake and Output for Last 24 Hours 02/10/19 02/11/19 02/12/19 23:59 23:59 23:59 Intake Total 1265 / 1265 1020 / 1020 Output Total 1999 1750 / 1750 Balance -735 / -735 -730 / -730 General: Awake, Alert HEENT: Atraumatic Oral: Moist Mucosa Neck: Supple Cardiovascular: Regular Rhythm Skin: No Rashes Psych/Mental Status: Appropriate Rhythm: EKG: ECHO: Stress Test: Cardiac Cath: PCI: CT Surgery: Holter monitor: EPS: PPM: CXR: Chest CT Scan: Medical Necessity - Tobacco Use Smoking Status: Never smoker Tobacco Use: Non-smoker Assessment/Plan 1. ST elevation [place]: Doing well. Continue current medications. Okay to discharge home from cardiac standpoint. 2. Hypertension: Continue losartan and Coreg.
--- NOTE | 2019-02-12 08:59 | DCINST_ITS ---
- Discharge Diagnoses Current Active Problems: Current Active and Chronic Problems (Last Updated 02/11/19 @ 10:34 by NOÉ Beck) STEMI (ST elevation myocardial infarction) (Acute) You will use the following diet at home:: No restrictions Your food should be the consistency of: Regular Your liquids should be the consistency of: Regular/Thin Discharge Activity: Return to Normal Activity Weight Bearing Status: Full weight bearing Additional Instructions: TYLENOL FOR PAIN-DO NOT USE ASPRIN, IBUPROFEN, OR ALLEVE FOR PAIN Allergies/Adverse Reactions: Allergies codeine Adverse Reaction (Verified 02/10/19 11:21) Itching Medications to take at Discharge Losartan Potassium [Cozaar] 100 mg PO DAILY 02/10/19 Omeprazole Magnesium [Prilosec Otc] 20 mg PO DAILY 02/10/19 Aspirin E.C. [Ecotrin] 81 mg PO DAILY@0800 tablet 02/12/19 Atorvastatin Calcium [Lipitor] 40 mg PO QHS #30 tab 02/12/19 Carvedilol [Coreg (Beta Aura)] 6.25 mg PO BID #60 tab 02/12/19 Ticagrelor [Brilinta] 90 mg PO BID #60 tab 02/12/19 The following prescriptions were given: Ticagrelor [Brilinta] 90 mg PO BID #60 tab Transmission Status: Pending to [id number] Carvedilol [Coreg (Beta Aura)] 6.25 mg PO BID #60 tab Transmission Status: Pending to [id number] Atorvastatin Calcium [Lipitor] 40 mg PO QHS #30 tab Transmission Status: Pending to [id number] Primary Care Physician: Adonay Boss MD [Primary Care Provider] - Please follow up with your Primary Care Physician in: in 2-3 weeks Test Results: Test results from this visit will be discussed in further detail at your follow- up appointment, if applicable. Please Follow Up With: Casey Gillette MD When: as directed
[2019-02-12 09:08] VITALS: BP 138/80; PULSE 90; RESP 18; TEMP 36.8; O2SAT 95
--- NOTE | 2019-02-12 09:11 | CASEMGMT ---
SAMMY ALAMO NOTE: To room to talk with pt. Pt sitting up in recliner chair in room. Brilinta Rx savings card given to patient and reviewed usage of same. Discussed importance of taking medication and if co-pay/[id number] cost is too high even after the savings card, to discuss other options with his hedis manager. Pt voices understanding. Duy GONZALEZ RN, CM
[2019-02-12] MEDS: Losartan Potassium 100 MG Tablet PO (09:13)
[2019-02-12] MEDS: Pantoprazole Sodium 20 MG Tablet PO (09:13)
[2019-02-12] MEDS: Carvedilol 6.25 MG Tablet PO (09:13)
[2019-02-12] MEDS: TICAGRELOR 90 MG TABLET PO (09:13)
[2019-02-12] MEDS: Aspirin E.C. 81 MG Tablet PO (09:13)
--- NOTE | 2019-02-12 10:00 | EKG12_ITS ---
Test Reason : AM EKG Blood Pressure : / mmHG Vent. Rate : 069 BPM Atrial Rate : 069 BPM P-R Int : 168 ms QRS Dur : 100 ms QT Int : 392 ms P-R-T Axes : 031 079 055 degrees QTc Int : 420 ms Normal sinus rhythm Nonspecific T wave abnormality Abnormal ECG When compared with ECG of 11-FEB-2019 05:20, Nonspecific T wave abnormality, improved in Inferior leads Confirmed by DOUG IRELAND, MATT ([id number]), international editorial producer MARIAM QUIROZ ([id number]) on 02/13/2019 11:09:47 AM Referred By: Casey Gillette Confirmed By:SHANKAR GILLETTE MD
--- NOTE | 2019-02-12 10:03 | PHA.DC.MC ---
Pharmacy Service has performed discharge medication reconciliation and counseling for this patient. The patient's discharge medication list was reviewed for discrepancies and discrepancies were resolved. The patient was counseled on the following discharge medications and changes in medications for homegoing were reviewed. 1. TICAGRELOR 2. CARVEDILOL 3. ATORVASTATIN 4. ASPIRIN The Reason for Use, instructions for use, and potential side effects were reviewed for all new medications. The patient's questions regarding all of their medications were answered. The patient was able to verbally demonstrate an understanding of their discharge medications. Home Medications Losartan Potassium [Cozaar] 100 mg PO DAILY 02/10/19 Omeprazole Magnesium [Prilosec Otc] 20 mg PO DAILY 02/10/19 Aspirin E.C. [Ecotrin] 81 mg PO DAILY@0800 tab 02/12/19 Atorvastatin Calcium [Lipitor] 40 mg PO QHS #30 tab 02/12/19 Carvedilol [Coreg (Beta Aura)] 6.25 mg PO BID #60 tab 02/12/19 Ticagrelor [Brilinta] 90 mg PO BID #60 tab 02/12/19
--- NOTE | 2019-02-12 18:15 | DS.PCM_ITS ---
Discharge Date and Diagnosis - Problem List Patient Problems: Active and Suspected Problems (Last Updated 02/12/19 @ 16:32 by Kimberly Mooney) Presence of stent in coronary artery (Acute) Thrombectomy and LAUREN to LCx and LAUREN to distal RCA 02/10/19 Atherosclerosis of coronary artery of [place] heart without angina pectoris ([place] Thrombectomy and LAUREN to LCx and LAUREN to distal RCA 02/10/19 Date of Admission: 02/10/19 Date of Discharge: 02/12/19 - Primary Discharge Diagnosis Active and Suspected Problems (Last Updated 02/12/19 @ 16:32 by Kimberly Mooney) #1 STEMI #2 hyperlipidemia #3 hypertension- #4 occlusive coronary artery disease of the circumflex and distal right coronary artery with placement of LAUREN - Secondary Discharge Diagnosis Chronic Problems (Last Updated 02/12/19 @ 16:32 by Kimberly Mooney) Essential hypertension (Chronic) Hyperlipidemia (Chronic) Hospital Course and Treatment Operations: None Procedures: 2-D Echocardiogram, Cardiac catheterization Summary of Care Provided: The patient is a 43 year old M was seen in the emergency room at [facility] with chief complaint of chest pain, evaluation in the emergency room showed the patient to have sinus rhythm on his EKG but there were ST upsloping in leads I and II and V3 through V6 along with ST depression in V1 and V2. Patient was felt to have a STEMI and the patient was taken emergently to [facility] where there was noted to be a 95% stenosis in the distal RCA and a total occlusion in the mid circumflex artery. In the circumflex artery, thrombectomy was performed with insertion of a drug-eluting stent, and the right mid coronary artery, a drug-eluting stent was placed with pre-dilatation. Kelli ent tolerated procedure well and he was admitted to ICU. Echocardiogram was performed and that showed a normal ejection fraction. Patient's medications were adjusted by cardiology, on 02/11/2019, patient was moved from the ICU to PCU for further care. There were no complications during his hospitalization. On 02/12/2019, patient was seen and examined: On examination he appeared in good health and spirits. Vital signs as documented. Skin warm and dry and without overt rashes. Neck without JVD. Lungs clear. Heart exam notable for regular rhythm, normal sounds and absence of murmurs, rubs or gallops. Abdomen unremarkable and without evidence of organomegaly, masses, or abdominal aortic enlargement. Extremities nonedematous. Neuro: Cranial nerves II through XII are grossly intact, no focal motor deficits were noted, sensation to light touch and pinprick intact. Psych: Patient is alert and oriented x3, he does not appear anxious or depressed On 02/12/2019, patient was seen and examined and felt to be in stable condition for discharge home Patient Problems: Active and Suspected Problems (Last Updated 02/12/19 @ 16:32 by Kimberly Mooney) Presence of stent in coronary artery (Acute) Thrombectomy and LAUREN to LCx and LAUREN to distal RCA 02/10/19 Atherosclerosis of coronary artery of [place] heart without angina pectoris (Acute) Thrombectomy and LAUREN to LCx and LAUREN to distal RCA 02/10/19 - Physical Exam Vital Signs Temp Pulse Resp BP Pulse Ox 98.3 F 90 18 138/80 H 95 02/12/19 09:08 02/12/19 09:08 02/12/19 09:08 02/12/19 09:08 02/12/19 09:08 Oxygen Flow Rate (L/min) 2 Oxygen Delivery Method Room Air Weight: 121.5 kg Body Mass Index (BMI) 39.5 Intake and Output for Last 24 Hours 02/10/19 02/11/19 02/12/19 23:59 23:59 23:59 Intake Total 1265 / 1265 1020 / 1020 Output Total 1999 1750 / 1750 Balance -735 / -735 -730 / -730 Discharge Activity: Return to Normal Activity Weight Bearing Status: Full weight bearing Home Medications: Medications to take at Discharge Losartan Potassium [Cozaar] 100 mg PO DAILY 02/10/19 Omeprazole Magnesium [Prilosec Otc] 20 mg PO DAILY 02/10/19 Aspirin E.C. [Ecotrin] 81 mg PO DAILY@0800 tab 02/12/19 Atorvastatin Calcium [Lipitor] 40 mg PO QHS #30 tab 02/12/19 Carvedilol [Coreg (Beta Aura)] 6.25 mg PO BID #60 tab 02/12/19 Ticagrelor [Brilinta] 90 mg PO BID #60 tab 02/12/19 Following Prescrptions Were Given to Patient: Ticagrelor [Brilinta] 90 mg PO BID #60 tab Transmission Status: Received by [id number] Carvedilol [Coreg (Beta Aura)] 6.25 mg PO BID #60 tab Transmission Status: Received by [id number] Atorvastatin Calcium [Lipitor] 40 mg PO QHS #30 tab Transmission Status: Received by [facility][id number] Primary Care Physician: Adonay Boss MD [Primary Care Provider] - Please follow up with your Primary Care Physician in: in 2-3 weeks Please Follow Up With: Casey Gillette MD When: as directed Disposition: Home Minutes spent on discharge:: 32 Patient Condition:: Stable Medical Necessity - Tobacco Use Tobacco Use: Non-smoker Meaningful Use Info Meaningful Use Diagnoses (Choose all that apply): AMI - AMI Aspirin given w/in 24hrs of arrival?: Yes ASA at discharge?: Yes Statins at discharge?: Yes Cornelio/ARB at discharge?: Yes Beta Aura at discharge?: Yes Done w/ Acute NE measure.: Yes Documented LVEF (%): 55 Code Visit Inpatient E&M: 66552 Disch Hosp
== END 2019-02-12 10:18 | disposition home or self-care (01) | DRG 247 ==
LOC: ED 11:48 → ICU 11:57 → PCU 02-11 17:53
PROVIDERS: Emergency Provider Emergency Medicine; Family Provider Family Medicine; PCP Family Medicine; Referring Provider Specialist; Visit Provider Internal Medicine
DX: I21.19 ST elevation (STEMI) myocardial infarction involving other coronary artery of inferior wall (principal); I10 Essential (primary) hypertension; I25.10 Atherosclerotic heart disease of native coronary artery without angina pectoris; E78.5 Hyperlipidemia, unspecified
CPT/HCPCS: 71045; 80048; 80061; 84484; 85025; 92928; 92941; 93005; 93306; 93458; 99152; 99153; 99285; C1874; J7030; Q9957; Q9967; A4216; C1725; C1757; C1769; C1887; C1894; C8929; C9600; C9606; J1327